=== PATIENT | male | born 1945 | race Caucasian/White ===

== ENCOUNTER 2021-01-09 14:11 | Outpatient (CLI) | payer MEDICARE, SELFPAY | END 2021-01-09 14:12 | disposition home or self-care (01) | LOC: CHSLAB 14:18 | PROVIDERS: PCP Internal Medicine; Visit Provider Specialist | DX: C44.619 Basal cell carcinoma of skin of left upper limb, including shoulder (principal) | CPT/HCPCS: 88305 ==

== ENCOUNTER 2023-07-15 14:34 | Outpatient (CLI) | payer MEDICARE, SELFPAY | END 2023-07-15 14:35 | disposition home or self-care (01) | LOC: CHSLAB 14:40 | PROVIDERS: PCP Internal Medicine; Visit Provider Specialist | DX: D18.01 Hemangioma of skin and subcutaneous tissue (principal) | CPT/HCPCS: 88305 ==